=== PATIENT | female | born 1995 | race Caucasian/White ===

== ENCOUNTER 2020-02-24 22:27 | Emergency (ER) | payer MEDICAID ==
[~2020-02-24] VITALS: Ht 165.1 cm; Wt 59.0 kg
[2020-02-25 01:02] VITALS: BP 127/88
== END 2020-02-25 01:03 | disposition home or self-care (01) ==
LOC: ER 22:27
DX: F10.129 Alcohol abuse with intoxication, unspecified (principal); Y90.0 Blood alcohol level of less than 20 mg/100 ml
CPT/HCPCS: 99283

== ENCOUNTER 2024-11-27 00:50 | Emergency (ER) | payer MEDICAID ==
[~2024-11-27] VITALS: Ht 172.7 cm; Wt 57.0 kg
[2024-11-27 01:01] VITALS: O2SAT 99
[2024-11-27 10:40] VITALS: BP 116/78; PULSE 65; RESP 16; TEMP 36.8; O2SAT 100
== END 2024-11-27 10:50 | disposition short-term general hospital (02) ==
LOC: ER 00:50
DX: T74.21XA Adult sexual abuse, confirmed, initial encounter (principal); Y92.89 Other specified places as the place of occurrence of the external cause
CPT/HCPCS: 99285